=== PATIENT | male | born 1955 | race Caucasian/White ===

== ENCOUNTER 2016-10-20 09:52 | Day surgery (SDC) | payer BC ==
[2016-10-16 11:07] VITALS: BMI 29.0
[~2016-10-20 09:52] MED LIST: LACTATED RINGERS 1,000 ML IV SCH
[2016-10-20 10:12] VITALS: RESP 16; TEMP 97.8
[2016-10-20] MEDS ORDERED: LIDOCAINE 1% 20 ML VIAL (10MG/ML) FOR IV START INTRADERMA ONE (10:14)
[2016-10-20] MEDS ORDERED: LIDOCAINE 1% INJ 10MG/ML (20 ML MDV) ONE (11:13)
[2016-10-20] MEDS ORDERED: PROPOFOL 10 MG/ML 20 ML VIAL IV ONE (11:13)
[2016-10-20] MEDS ORDERED: LABETALOL 5 MG/ML VIAL MDV ONE (11:13)
--- NOTE | 2016-10-20 11:40 | P.PCN ---
Date of Procedure: 10/20/16 Procedure(s) Performed: Procedure: Total colonoscopy. Preoperative diagnosis: Screening for neoplasia. Postoperative diagnosis: Mild sigmoid diverticulosis with no evidence of acute diverticulitis, strictures, polyps or cancer. Preparation: HalfLytely prep. Sedation: Was provided by anesthesia. Brief clinical history: The patient is 61-year-old male who is referred for this evaluation for screening for neoplasia. He had prior surgery 10 or 15 years ago for what sounds like a ruptured diverticulum. He had a colonoscopy around that time and he doesn't believe he had any polyps removed back then. At this time, he has no abdominal complaints, bleeding or anemia. Procedure: With the patient on his left lateral decubitus position and after informed consent and adequate sedation, the perianal area was inspected and it did not show any fissures or fistulas. There were no masses felt on digital rectal examination. The Olympus CFQ 160L video colonoscope was then inserted in the rectum in the usual fashion and advanced to the cecum. The mucosa appeared healthy. No polyps or tumors were seen. There was occasional small diverticular orifices seen in the distal sigmoid. I also noted the area of resection and anastomosis in the sigmoid and there were no strictures or other issues there. I retroflexed the endoscope in the rectum then the endoscope was withdrawn. The patient tolerated the procedure well. Plan: The patient was reassured. Discussed dietary measures. I recommended a repeat exam in 10 years. He will follow up with you as planned.
[2016-10-20 11:52] VITALS: BP 121/62; PULSE 60
== END 2016-10-20 12:11 | disposition home or self-care (01) ==
LOC: ORWHC2ENDO 09:52
DX: Z12.11 Encounter for screening for malignant neoplasm of colon (principal); K57.30 Diverticulosis of large intestine without perforation or abscess without bleeding; Z98.0 Intestinal bypass and anastomosis status; I25.10 Atherosclerotic heart disease of native coronary artery without angina pectoris; I10 Essential (primary) hypertension; E78.5 Hyperlipidemia, unspecified; Z79.02 Long term (current) use of antithrombotics/antiplatelets; Z79.82 Long term (current) use of aspirin; Z79.899 Other long term (current) drug therapy
CPT/HCPCS: J2001; J2704; G0121; 45378

== ENCOUNTER → 2017-03-23 | Outpatient (CLI) | payer BC ==
[2017-03-23 09:25] VITALS: BMI 29.0
== END ==
LOC: MNTWWP 08:58
PROVIDERS: ATTEND Family Medicine
DX: R73.09 Other abnormal glucose (principal)
CPT/HCPCS: 97802

== ENCOUNTER 2019-12-19 14:07 | Emergency (ER) | payer BC ==
[2019-12-19 14:18] VITALS: RESP 18; TEMP 97.9
[2019-12-19] MEDS ORDERED: MECLIZINE 12.5 MG TAB PO STA (14:26)
[2019-12-19] MEDS ORDERED: SODIUM CHLORIDE 0.9% 1,000 ML IV STA (14:26)
[2019-12-19] MEDS ORDERED: METOCLOPRAMIDE 5 MG/ML 2 ML VIAL IVP STA (14:26)
--- NOTE | 2019-12-19 14:28 | ED ---
General Adult HPI - General Source: patient, EMS Mode of arrival: EMS Limitations: no limitations <Mike Regan Morgan - Last Filed: 12/19/19 15:08> <OliverlawrenceBibiana Yaneli - Last Filed: 12/19/19 16:18> - General Chief complaint: Dizziness Stated complaint: Nausea, vomiting Time Seen by Provider: 12/19/19 14:20 - History of Present Illness Initial comments: Dictation was produced using [employer] dictation software. please excuse any grammatical, word or spelling errors. This patient was cared for during a federal and state declared state of emergency secondary to Covid 19 Chief Complaint: 64-year-old male past medical history of disability of hypertension and myocardial infarction presents with vertigo. History of Present Illness: 64-year-old male who states he woke up with vertigo. Patient states that if he developed times this morning. The last couple days he did spend some time outside and feels again no not drink enough water. She reports that his nausea is much more intense when his eyes are open. States that his symptoms are worse with certain movement especially going from sitting to standing. He denies any history of vertigo. Patient states that when his eyes or close his symptoms are much more improved. No fever, chills or night sweats. Denies any pain complaints. Patient otherwise feels well. The ROS documented in this emergency department record has been reviewed and confirmed by me. Those systems with pertinent positive or negative responses have been documented in the HPI. All other systems are other negative and/or noncontributory. PHYSICAL EXAM: General Impression: Alert and oriented x3, not in acute distress HEENT: Normocephalic atraumatic, extra-ocular movements intact, pupils equal and reactive to light bilaterally, mucous membranes moist. Cardiovascular: Heart regular rate and rhythm Chest: Able to complete full sentences, no retractions, no tachypnea Abdomen: abdomen soft, non-tender, non-distended, no organomegaly Musculoskeletal: Pulses present and equal in all extremities, no peripheral edema Motor: no focal deficits noted Neurological: CN II-XII grossly intact, no focal motor or sensory deficits noted, right beating nystagmus with fast phase to the right, no rotatory or vertical nystagmus Skin: Intact with no visualized rashes Psych: Normal affect and mood ED course: 64-year-old presents with vertigo. Vital signs upon arrival are within acceptable limits. Patient given intravenous fluids, Reglan and Antivert. Patient is signed out to Dr. Guevara EKG interpretation: Ventricular rate 67, normal sinus rhythm,. Interval 146, QRS 90, QTC 490. No [place] prolongation, no QTC prolongation, no ST or T-wave changes noted. . Overall, this EKG is unremarkable (Mike Regan) - Related Data Home Medications Medication Instructions Recorded Confirmed Atorvastatin [Lipitor] 80 mg PO HS 10/16/16 12/19/19 Clopidogrel [Plavix] 75 mg PO HS 10/16/16 12/19/19 Lisinopril [Zestril] 5 mg PO HS 10/16/16 12/19/19 Metoprolol Tartrate [Lopressor] 25 mg PO BID 10/16/16 12/19/19 Nitroglycerin Sl Tabs [Nitrostat] 0.4 mg SUBLINGUAL Q5M PRN 10/16/16 12/19/19 Aspirin EC [Ecotrin Low Dose] 81 mg PO DAILY 12/19/19 12/19/19 Previous Rx's Medication Instructions Recorded Meclizine [Antivert] 25 mg PO TID PRN #12 tab 12/19/19 Allergies Allergy/AdvReac Type Severity Reaction Status Date / Time No Known Allergies Allergy Verified 12/19/19 15:43 Review of Systems ROS Other: All systems not noted in ROS Statement are negative. <Mike Regan - Last Filed: 12/19/19 15:08> ROS Other: All systems not noted in ROS Statement are negative. <Bibiana Guevara - Last Filed: 12/19/19 16:18> ROS Statement: Those systems with pertinent positive or pertinent negative responses have been documented in the HPI. Past Medical History Past Medical History: Hyperlipidemia, Hypertension, Myocardial Infarction (CT) Last Myocardial Infarction Date:: 2006 History of Any Multi-Drug Resistant Organisms: None Reported Past Surgical History: Bowel Resection, Heart Catheterization With Stent Additional Past Surgical History / Comment(s): COLONOSCOPY Past Anesthesia/Blood Transfusion Reactions: No Reported Reaction Date of Last Stent Placement:: 2006 Smoking Status: Former smoker - Past Family History Mother Family Medical History: No Reported History <Mike Regan - Last Filed: 12/19/19 15:08> General Exam Limitations: no limitations <Mike Regan - Last Filed: 12/19/19 15:08> Course Vital Signs 12/19/19 12/19/19 14:10 14:59 Temperature 97.9 F Pulse Rate 69 68 Respiratory 18 18 Rate Blood Pressure 144/85 136/72 O2 Sat by Pulse 95 Oximetry Medical Decision Making - Lab Data Result diagrams: 12/19/19 14:48 <Mike Regan - Last Filed: 12/19/19 15:08> - Lab Data Result diagrams: 12/19/19 14:48 12/19/19 14:48 <Bibiana Guevara - Last Filed: 12/19/19 16:18> - Medical Decision Making The patient was evaluated by me. I did review his laboratory studies. Patient received IV fluids, meclizine and Reglan. The patient was reevaluated and repor ts that he feels much improved. He is able to sit up in bed and move around without symptoms. Patient feels comfortable with discharge at this time. I will write the patient prescription for meclizine. He is to follow up with his primary care doctor in 2-4 days. Return to the emergency department for any new or worsening symptoms for patient was discharged home in stable condition (Bibiana Guevara) - Lab Data Lab Results 12/19/19 12/19/19 Range/Units 14:48 14:48 WBC 6.0 (3.8-10.6) k/uL RBC 5.52 (4.30-5.90) m/uL Hgb 16.9 (13.0-17.5) gm/dL Hct 49.3 (39.0-53.0) % MCV 89.4 (80.0-100.0) fL MCH 30.6 (25.0-35.0) pg MCHC 34.2 (31.0-37.0) g/dL RDW 12.7 (11.5-15.5) % Plt Count 205 (150-450) k/uL Neutrophils % 79 % Lymphocytes % 12 % Monocytes % 6 % Eosinophils % 2 % Basophils % 0 % Neutrophils # 4.8 (1.3-7.7) k/uL Lymphocytes # 0.7 L (1.0-4.8) k/uL Monocytes # 0.4 (0-1.0) k/uL Eosinophils # 0.1 (0-0.7) k/uL Basophils # 0.0 (0-0.2) k/uL Sodium 134 L (137-145) mmol/L Potassium 4.2 (3.5-5.1) mmol/L Chloride 103 (98-107) mmol/L Carbon Dioxide 23 (22-30) mmol/L Anion Gap 8 mmol/L BUN 12 (9-20) mg/dL Creatinine 0.77 (0.66-1.25) mg/dL Est GFR (CKD-EPI)AfAm >90 (>60 ml/min/1.73 sqM) Est GFR (CKD-EPI)NonAf >90 (>60 ml/min/1.73 sqM) Glucose 146 H (74-99) mg/dL Calcium 8.7 (8.4-10.2) mg/dL Disposition <Mike Regan - Last Filed: 12/19/19 15:08> Is patient prescribed a controlled substance at d/c from ED?: No Time of Disposition: 16:16 <Bibiana Guevara - Last Filed: 12/19/19 16:18> Clinical Impression: Vertigo Disposition: HOME SELF-CARE Condition: Stable Instructions (If sedation given, give patient instructions): Dizziness (ED) Additional Instructions: Please follow-up with your primary care doctor in 2-4 days. Return to the emergency room for any new or worsening symptoms Prescriptions: Meclizine [Antivert] 25 mg PO TID PRN #12 tab PRN Reason: Vertigo Referrals: John Griggs DO [Primary Care Provider] - 1-2 days
[2019-12-19 15:00] LABS: Basophils % (A) 0 %; Eosinophils # (A) 0.1 k/uL (0-0.7); Eosinophils % (A) 2 %; HCT 49.3 % (39.0-53.0); HGB 16.9 gm/dL (13.0-17.5); Lymphocytes # (A) 0.7 k/uL (1.0-4.8); Lymphocytes % (A) 12 %; MCH 30.6 pg (25.0-35.0); MCHC 34.2 g/dL (31.0-37.0); MCV 89.4 fL (80.0-100.0); Mean Platelet Volume 7.4; Monocytes # (A) 0.4 k/uL (0-1.0); Monocytes % (A) 6 %; Neutrophils # (A) 4.8 k/uL (1.3-7.7); Neutrophils % (A) 79 %; Platelet Count 205 k/uL (150-450); RBC 5.52 m/uL (4.30-5.90); RDW 12.7 % (11.5-15.5)
[2019-12-19 15:01] VITALS: BP 136/72; PULSE 68
[2019-12-19 15:11] LABS: African American GFR (CKD) >90 (>60 ml/min/1.73 sqM); Anion Gap 8 mmol/L; Blood Urea Nitrogen 12 mg/dL (9-20); Calcium 8.7 mg/dL (8.4-10.2); Carbon Dioxide 23 mmol/L (22-30); Chloride 103 mmol/L (98-107); Glucose 146 mg/dL (74-99); Non-African American GFR(CKD) >90 (>60 ml/min/1.73 sqM); Potassium 4.2 mmol/L (3.5-5.1); Sodium 134 mmol/L (137-145)
== END 2019-12-19 17:11 | disposition home or self-care (01) ==
LOC: EC 14:07
DX: R42 Dizziness and giddiness (principal); E78.5 Hyperlipidemia, unspecified; I10 Essential (primary) hypertension; I25.2 Old myocardial infarction; Z79.899 Other long term (current) drug therapy; Z79.82 Long term (current) use of aspirin; Z79.02 Long term (current) use of antithrombotics/antiplatelets; Z95.5 Presence of coronary angioplasty implant and graft; Z87.891 Personal history of nicotine dependence
CPT/HCPCS: 36415; 93005; 80048; 85025; 99284; 96374; 96375; 96361 ×2; J2765

== ENCOUNTER 2020-11-07 07:07 | Emergency (ER) | payer MEDICARE, BC ==
[2020-11-07 07:21] VITALS: RESP 16; TEMP 97.5
[2020-11-07] MEDS ORDERED: SODIUM CHLORIDE 0.9% 1,000 ML IV STA (07:28)
[2020-11-07] MEDS ORDERED: MECLIZINE 12.5 MG TAB PO STA (07:29)
[2020-11-07] MEDS ORDERED: METOCLOPRAMIDE 5 MG/ML 2 ML VIAL IVP STA (07:29)
--- NOTE | 2020-11-07 07:31 | ED ---
General Adult HPI - General Chief complaint: Dizziness Stated complaint: Dizziness Time Seen by Provider: 11/07/20 07:23 Source: patient, RN notes reviewed Mode of arrival: wheelchair Limitations: no limitations - History of Present Illness Initial comments: Patient is a pleasant 65-year-old male presenting to the emergency Department with complaints of dizziness. Onset of symptoms was a day and a half ago. Patient feels a spinning type sensation. Symptoms are worse with upright position and head movements. Symptoms improve with lying down and closing his eyes. Patient does have a history of similar symptoms previously associated with inner ear problems. Patient does have some mild nausea. No weakness or confusion. No vomiting. Patient did have recent blood work with concern for liver enzymes. - Related Data Home Medications Medication Instructions Recorded Confirmed Atorvastatin [Lipitor] 80 mg PO HS 10/16/16 11/07/20 Clopidogrel [Plavix] 75 mg PO HS 10/16/16 11/07/20 Metoprolol Tartrate [Lopressor] 25 mg PO BID 10/16/16 11/07/20 Nitroglycerin Sl Tabs [Nitrostat] 0.4 mg SUBLINGUAL Q5M PRN 10/16/16 11/07/20 lisinopriL [Zestril] 5 mg PO HS 10/16/16 11/07/20 Aspirin EC [Ecotrin Low Dose] 81 mg PO DAILY 12/19/19 11/07/20 Allergies Allergy/AdvReac Type Severity Reaction Status Date / Time No Known Allergies Allergy Verified 11/07/20 09:02 Review of Systems ROS Statement: Those systems with pertinent positive or pertinent negative responses have been documented in the HPI. ROS Other: All systems not noted in ROS Statement are negative. Constitutional: Denies: fever Eyes: Denies: eye pain ENT: Denies: ear pain Respiratory: Denies: cough Cardiovascular: Denies: chest pain Endocrine: Denies: fatigue Gastrointestinal: Reports: nausea. Denies: abdominal pain, vomiting Musculoskeletal: Denies: back pain Skin: Denies: rash Neurological: Reports: vertigo. Denies: headache, weakness, numbness, paresthesias, confusion Past Medical History Past Medical History: Hyperlipidemia, Hypertension, Myocardial Infarction ([place]) Last Myocardial Infarction Date:: 2006 History of Any Multi-Drug Resistant Organisms: None Reported Past Surgical History: Bowel Resection, Heart Catheterization With Stent Additional Past Surgical History / Comment(s): COLONOSCOPY Past Anesthesia/Blood Transfusion Reactions: No Reported Reaction Date of Last Stent Placement:: 2006 Past Psychological History: No Psychological Hx Reported Smoking Status: Never smoker Past Alcohol Use History: Occasional Past Drug Use History: None Reported - Past Family History Mother Family Medical History: No Reported History General Exam Limitations: no limitations General appearance: alert, in no apparent distress Head exam: Present: atraumatic, normocephalic Eye exam: Present: normal appearance, PERRL, EOMI. Absent: nystagmus ENT exam: Present: normal oropharynx Neck exam: Present: normal inspection Respiratory exam: Present: normal lung sounds bilaterally Cardiovascular Exam: Present: regular rate, normal rhythm GI/Abdominal exam: Present: soft. Absent: tenderness Extremities exam: Present: normal inspection Neurological exam: Present: alert, oriented X3, CN II-XII intact. Absent: motor sensory deficit Expanded Neurological exam: Present: protecting the airway Speech: Present: fluid speech Cranial nerves: EOM's Intact: Normal Motor strength exam: RUE: 5, LUE: 5, RLE: 5, LLE: 5 Eye Response: (4) open spontaneously Motor Response: (6) obeys commands Verbal Response: (5) oriented Psychiatric exam: Present: normal affect, normal mood Skin exam: Present: normal color Course Vital Signs 11/07/20 11/07/20 11/07/20 07:18 08:21 09:00 Temperature 97.5 F L Pulse Rate 66 64 66 Respiratory 16 16 16 Rate Blood Pressure 146/83 129/73 O2 Sat by Pulse 96 98 98 Oximetry EKG Findings - EKG Comments: EKG Findings:: Normal sinus rhythm with a rate of 62. [place] 144. QRS 96. QT 478. QTC 45. Left axis. Normal QRS. No acute ST change. Medical Decision Making - Medical Decision Making Patient reevaluated and feeling much better. Patient updated on results. Patient is able to get up and ambulate without difficulty. Only mild lightheadedness. Patient is comfortable with discharge home. - Lab Data Result diagrams: 11/07/20 07:51 11/07/20 07:51 Lab Results 11/07/20 11/07/20 11/07/20 Range/Units 07:51 07:51 07:51 WBC 4.8 (3.8-10.6) k/uL RBC 6.14 H (4.30-5.90) m/uL Hgb 18.0 H (13.0-17.5) gm/dL Hct 54.4 H (39.0-53.0) % MCV 88.7 (80.0-100.0) fL MCH 29.3 (25.0-35.0) pg MCHC 33.1 (31.0-37.0) g/dL RDW 12.9 (11.5-15.5) % Plt Count 202 (150-450) k/uL MPV 6.8 Neutrophils % 70 % Lymphocytes % 20 % Monocytes % 6 % Eosinophils % 2 % Basophils % 1 % Neutrophils # 3.4 (1.3-7.7) k/uL Lymphocytes # 1.0 (1.0-4.8) k/uL Monocytes # 0.3 (0-1.0) k/uL Eosinophils # 0.1 (0-0.7) k/uL Basophils # 0.0 (0-0.2) k/uL PT 11.7 (9.0-12.0) sec INR 1.1 (<1.2) APTT 22.0 (22.0-30.0) sec Sodium 136 L (137-145) mmol/L Potassium 4.7 (3.5-5.1) mmol/L Chloride 103 (98-107) mmol/L Carbon Dioxide 24 (22-30) mmol/L Anion Gap 9 mmol/L BUN 15 (9-20) mg/dL Creatinine 0.94 (0.66-1.25) mg/dL Est GFR (CKD-EPI)AfAm >90 (>60 ml/min/1.73 sqM) Est GFR (CKD-EPI)NonAf 85 (>60 ml/min/1.73 sqM) Glucose 157 H (74-99) mg/dL Calcium 9.0 (8.4-10.2) mg/dL Magnesium 2.0 (1.6-2.3) mg/dL Total Bilirubin 1.3 (0.2-1.3) mg/dL AST 44 (17-59) U/L ALT 58 H (4-49) U/L Alkaline Phosphatase 79 (38-126) U/L Troponin I (0.000-0.034) ng/mL Total Protein 6.9 (6.3-8.2) g/dL Albumin 4.2 (3.5-5.0) g/dL 11/07/20 Range/Units 07:51 WBC (3.8-10.6) k/uL RBC (4.30-5.90) m/uL Hgb (13.0-17.5) gm/dL Hct (39.0-53.0) % MCV (80.0-100.0) fL MCH (25.0-35.0) pg MCHC (31.0-37.0) g/dL RDW (11.5-15.5) % Plt Count (150-450) k/uL MPV Neutrophils % % Lymphocytes % % Monocytes % % Eosinophils % % Basophils % % Neutrophils # (1.3-7.7) k/uL Lymphocytes # (1.0-4.8) k/uL Monocytes # (0-1.0) k/uL Eosinophils # (0-0.7) k/uL Basophils # (0-0.2) k/uL PT (9.0-12.0) sec INR (<1.2) APTT (22.0-30.0) sec Sodium (137-145) mmol/L Potassium (3.5-5.1) mmol/L Chloride (98-107) mmol/L Carbon Dioxide (22-30) mmol/L Anion Gap mmol/L BUN (9-20) mg/dL Creatinine (0.66-1.25) mg/dL Est GFR (CKD-EPI)AfAm (>60 ml/min/1.73 sqM) Est GFR (CKD-EPI)NonAf (>60 ml/min/1.73 sqM) Glucose (74-99) mg/dL Calcium (8.4-10.2) mg/dL Magnesium (1.6-2.3) mg/dL Total Bilirubin (0.2-1.3) mg/dL AST (17-59) U/L ALT (4-49) U/L Alkaline Phosphatase (38-126) U/L Troponin I <0.012 (0.000-0.034) ng/mL Total Protein (6.3-8.2) g/dL Albumin (3.5-5.0) g/dL Disposition Clinical Impression: Vertigo Disposition: HOME SELF-CARE Condition: Stable Instructions (If sedation given, give patient instructions): Dizziness (ED) Additional Instructions: Please do follow-up with your primary care physician in the next day or 2 for recheck. Return for worsening symptoms, speech problems, weakness or confusion, difficulty walking, or any other concerns. [id number] Antivert as needed. Is patient prescribed a controlled substance at d/c from ED?: No Referrals: John Griggs DO [Primary Care Provider] - 1-2 days Time of Disposition: 09:34
[2020-11-07 08:09] LABS: Basophils % (A) 1 %; Eosinophils # (A) 0.1 k/uL (0-0.7); Eosinophils % (A) 2 %; HCT 54.4 % (39.0-53.0); Lymphocytes % (A) 20 %; MCH 29.3 pg (25.0-35.0); MCHC 33.1 g/dL (31.0-37.0); MCV 88.7 fL (80.0-100.0); Mean Platelet Volume 6.8; Monocytes # (A) 0.3 k/uL (0-1.0); Monocytes % (A) 6 %; Neutrophils # (A) 3.4 k/uL (1.3-7.7); Neutrophils % (A) 70 %; Platelet Count 202 k/uL (150-450); RBC 6.14 m/uL (4.30-5.90); RDW 12.9 % (11.5-15.5); WBC 4.8 k/uL (3.8-10.6)
[2020-11-07 08:19] LABS: INR 1.1 (<1.2); Prothrombin Time 11.7 sec (9.0-12.0)
[2020-11-07 08:20] LABS: ALT 58 U/L (4-49); AST 44 U/L (17-59); African American GFR (CKD) >90 (>60 ml/min/1.73 sqM); Albumin 4.2 g/dL (3.5-5.0); Alkaline Phosphatase 79 U/L (38-126); Anion Gap 9 mmol/L; Blood Urea Nitrogen 15 mg/dL (9-20); Carbon Dioxide 24 mmol/L (22-30); Chloride 103 mmol/L (98-107); Glucose 157 mg/dL (74-99); Non-African American GFR(CKD) 85 (>60 ml/min/1.73 sqM); Potassium 4.7 mmol/L (3.5-5.1); Sodium 136 mmol/L (137-145); Total Bilirubin 1.3 mg/dL (0.2-1.3); Total Protein 6.9 g/dL (6.3-8.2)
[2020-11-07 09:26] VITALS: PULSE 66
[2020-11-07 09:40] VITALS: BP 125/86
== END 2020-11-07 09:42 | disposition home or self-care (01) ==
LOC: EC 07:07
DX: R42 Dizziness and giddiness (principal); R11.0 Nausea; E78.5 Hyperlipidemia, unspecified; I10 Essential (primary) hypertension; I25.2 Old myocardial infarction; Z79.02 Long term (current) use of antithrombotics/antiplatelets; Z79.82 Long term (current) use of aspirin
CPT/HCPCS: 36415; 93005; 80053; 83735; 84484; 85025; 85610; 85730; 99284; 96374; 96361; J2765